=== PATIENT | male | born 2000 | race Caucasian/White ===

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

== ENCOUNTER → 2020-08-05 | Outpatient (CLI) | payer BC | LOC: M LABSMTC 12:52 | PROVIDERS: ATTEND Family Medicine | DX: Z20.828 Contact with and (suspected) exposure to other viral communicable diseases (principal) ==

== ENCOUNTER → 2021-03-09 | Outpatient (CLI) | payer BC | LOC: M RAD 14:05 | PROVIDERS: ATTEND Nurse Practitioner Family | DX: M25.551 Pain in right hip (principal); M25.552 Pain in left hip ==

== ENCOUNTER → 2021-04-06 | Outpatient (CLI) | payer BC ==
[2021-04-06 14:28] LABS: BASO # 0.1 10^3/uL (0.0-0.2); BASO % 1.9 % (0.0-1.0); EOS # 0.1 10^3/uL (0.0-0.5); EOS % 1.3 % (0.0-3.0); HEMATOCRIT 46.9 % (42.0-52.0); HEMOGLOBIN 15.9 g/dl (13.5-17.5); LYMPH # 1.2 10^3/uL (1.5-5.0); LYMPH % 32.1 % (24.0-44.0); MEAN CORPUSCULAR HEMOGLOBIN 30.3 pg (27.0-33.0); MEAN CORPUSCULAR HGB CONC 33.9 g/dl (32.0-36.5); MEAN CORPUSCULAR VOLUME 89.3 fl (80.0-96.0); MONO # 0.6 10^3/uL (0.0-0.8); NEUTROPHILS # 1.9 10^3/uL (1.5-8.5); NEUTROPHILS % 49.4 % (36.0-66.0); PLATELET COUNT, AUTOMATED 219 10^3/uL (150-450); RED BLOOD COUNT 5.25 10^6/uL (4.30-6.10); WHITE BLOOD COUNT 3.7 10^3/uL (4.0-10.0)
[2021-04-06 14:57] LABS: C REACTIVE PROTEIN QUANTITATIV < 0.30 MG/DL (0.00-0.30); RHEUMATOID FACTOR QUANT < 10.0 IU/ML (<15.0)
[2021-04-06 15:04] LABS: ERYTHROCYTE SEDIMENTATION RATE 2 mm/hr (0-15)
[2021-04-07 16:08] LABS: ANTINUCLEAR ANTIBODIES DIRECT Negative (Negative); Lyme Disease IgG/IgM Antibodie <0.91 ISR (0.00-0.90); Lyme Disease IgM Ab Quantitati <0.80 index (0.00-0.79)
== END ==
LOC: M PLALAB 10:55
PROVIDERS: ATTEND Orthopaedic Surgery
DX: M16.11 Unilateral primary osteoarthritis, right hip (principal)

== ENCOUNTER → 2021-04-14 | Outpatient (CLI) | payer BC ==
[2021-04-14 15:21] LABS: HEMATOCRIT 45.6 % (42.0-52.0); HEMOGLOBIN 15.3 g/dl (13.5-17.5); MEAN CORPUSCULAR HEMOGLOBIN 29.9 pg (27.0-33.0); MEAN CORPUSCULAR HGB CONC 33.6 g/dl (32.0-36.5); MEAN CORPUSCULAR VOLUME 89.2 fl (80.0-96.0); PLATELET COUNT, AUTOMATED 227 10^3/uL (150-450); RED BLOOD COUNT 5.11 10^6/uL (4.30-6.10); WHITE BLOOD COUNT 4.2 10^3/uL (4.0-10.0)
[2021-04-14 16:01] LABS: ALBUMIN 4.3 GM/DL (3.2-5.2); ALT/SGPT 17 U/L (12-78); BILIRUBIN,TOTAL 0.9 MG/DL (0.2-1.0); BLOOD UREA NITROGEN 10 MG/DL (7-18); CALCIUM LEVEL 8.7 MG/DL (8.5-10.1); CARBON DIOXIDE LEVEL 29 MEQ/L (21-32); CHLORIDE LEVEL 109 MEQ/L (98-107); CREATININE FOR GFR 0.81 MG/DL (0.70-1.30); GLUCOSE, FASTING 89 MG/DL (70-100); POTASSIUM SERUM 4.2 MEQ/L (3.5-5.1); SODIUM LEVEL 142 MEQ/L (136-145); TOTAL PROTEIN 7.1 GM/DL (6.4-8.2)
== END ==
LOC: M PLALAB 12:05
PROVIDERS: ATTEND Nurse Practitioner Adult Health
DX: Z76.89 Persons encountering health services in other specified circumstances (principal)

== ENCOUNTER → 2021-05-08 | Outpatient (CLI) | payer BC ==
[~2021-05-08] MED LIST changes: +ISOVUE-300 61% 50ML VIAL As Ordered ONE; -ISOVUE-370 76% 100ML VIAL (Q9967) As Ordered ONE; +PROHANCE 279.3MG/ML 5ML VIAL As Ordered ONE
--- NOTE | 2021-05-08 09:38 | REP ---
INDICATION: PAIN RT HIP. COMPARISON: None TECHNIQUE: The procedure was performed by ANUJA Che, under the direct supervision of Dr. Watson. The benefits and risks of the procedure were explained to the patient, and an informed consent was obtained. Directly prior to the start of the procedure, a formal time-out was completed in the procedure room. The right femoral neck joint space was localized using fluoroscopic guidance. The skin was prepped and draped in a sterile fashion. Approximately 5 mL of 1% Lidocaine 10 mg/ml was used as a local anesthetic. Using fluoroscopic guidance, a #22 gauge spinal needle was inserted and advanced into the right femoral neck joint space. Approximately 1 mL of Isovue 300 was injected to verify placement. Twelve mL of a solution containing 20 mL of sterile saline and 0.15 mL of ProHance was injected into the joint space. The needle was removed and the patient was taken to MRI for post procedural imaging. FINDINGS: The patient tolerated the procedure well and there were no immediate complications. IMPRESSION: Fluoroscopically guided right hip MRI arthrogram injection. 0.1 minutes of fluoroscopy time was utilized for this procedure. Some fluoroscopic images are performed with last image hold technology. These images require no additional radiation. <Electronically signed by Cammie Mac > 05/08/21 0828 <Electronically signed by Behzad Watson > 05/08/21 0967
--- NOTE | 2021-05-08 09:57 | REP ---
INDICATION: PAIN RT HIP. Rule out labral tear, AVN. COMPARISON: Comparison radiographs are from March 09, 2021. TECHNIQUE: Precontrast imaging includes coronal T1 and T2-weighted scans of both hips. Precontrast high-resolution smaller field of view axial, coronal and sagittal T2 fat sat images are acquired of the right hip. The injection procedure is performed and dictated separately. Postcontrast T1 fat sat images are acquired in all 3 planes. FINDINGS: Precontrast coronal T1 and T2 weighted scans show normal cortical and medullary bone signal intensity in the proximal femurs and in the visualized bony pelvic ring. There is no evidence to suggest avascular necrosis of either femoral head. No hip joint effusion is seen. No juxta-articular cyst or mass is observed. Seminal vesicles, prostate, and urinary bladder are unremarkable. No pelvic mass or adenopathy is seen. No abdominal wall defect is observed. Post injection images show good filling and enhancement of the right hip articulation. No loose body is seen. Ligamentum teres is intact. There is no evidence of acetabular labral tear. Head neck junction morphology is normal. The study is otherwise unremarkable. IMPRESSION: Negative MR arthrography right hip. <Electronically signed by Behzad Watson > 05/08/21 0928
== END ==
LOC: M RADPRO 06:50
PROVIDERS: ATTEND Orthopaedic Surgery
DX: M25.551 Pain in right hip (principal)
CPT/HCPCS: 27093; 73723; 77002; A9576; Q9967

== ENCOUNTER → 2021-05-15 | Outpatient (CLI) | payer BC ==
--- NOTE | 2021-05-15 09:31 | REP ---
INDICATION: PAIN LT HIP. COMPARISON: Comparison hip radiographs March 09 2021. TECHNIQUE: Precontrast imaging includes coronal T1 and T2-weighted scans of both hips. Precontrast high-resolution smaller field of view axial, coronal and sagittal T2 fat sat images are acquired of the left hip. The injection procedure is performed and dictated separately. Postcontrast T1 fat sat images are acquired in all 3 planes. FINDINGS: Pre contrast coronal T1 and T2 weighted scans of both hips show that cortical and medullary bone signal intensity is normal. There is no evidence of avascular necrosis. Urinary bladder, prostate, and seminal vesicles are unremarkable. No pelvic mass or adenopathy is seen. No abdominal wall defect is observed. There is no evidence of joint effusion in either hip. Head neck junction morphology is normal. Post injection imaging shows good filling and enhancement of the left hip articulation. Ligamentum teres has a normal appearance. No loose body is seen. There is no evidence of left-sided acetabular labral cartilage tear. Hamstring and other tendon insertion sites are unremarkable. IMPRESSION: Negative MRI arthrography left hip. <Electronically signed by Behzad Watson > 05/15/21 0923
--- NOTE | 2021-05-15 16:16 | REP ---
INDICATION: PAIN LT HIP. COMPARISON: None. TECHNIQUE: The procedure was performed under the direction supervision of Dr. Watson. The benefits and risks including but not limited to pain, infection, bleeding and anaphylaxis were explained to the patient and informed consent was obtained. The left femoral neck was localized using fluoroscopic guidance. Skin was prepped and draped in a sterile fashion. 1% lidocaine was used as a local anesthetic. Using fluoroscopic guidance, and last image hold technology, a 22 gauge spinal needle was inserted and advanced to the femoral neck. 0.5 ml of Isovue-300 was injected to verify placement. 11 ml of a solution containing 20 ml of sterile saline and 0.15 ml of ProHance was injected into the joint. The needle was removed and the patient was taken to MRI for postprocedural imaging. The patient tolerated the procedure well and there were no immediate complications. Less than 6 seconds of fluoro time was utilized for this procedure. FINDINGS: None IMPRESSION: Fluoro guidance for left hip MRI arthrogram injection. <Electronically signed by Amaury Burton > 05/15/21 [id number] <Electronically signed by Behzad Watson > 05/15/21 [id number]
== END ==
LOC: M RADPRO 06:31
PROVIDERS: ATTEND Orthopaedic Surgery
DX: M25.552 Pain in left hip (principal)
CPT/HCPCS: 27093; 73723; 77002; A9576; Q9967

== ENCOUNTER → 2022-07-26 | Outpatient (CLI) | payer BC | LOC: M RAD 15:12 | PROVIDERS: ATTEND Orthopaedic Surgery | DX: M54.16 Radiculopathy, lumbar region (principal) ==

== ENCOUNTER 2022-08-05 08:45 | Outpatient (RCR) | payer BC | END 2022-08-07 | LOC: M PT 08:45 | PROVIDERS: ATTEND Orthopaedic Surgery | DX: M70.61 Trochanteric bursitis, right hip (principal); M70.62 Trochanteric bursitis, left hip; M54.16 Radiculopathy, lumbar region ==

== ENCOUNTER 2022-08-26 08:45 | Outpatient (RCR) | payer BC | END 2022-09-07 | LOC: M PT 08:45 | PROVIDERS: ATTEND Orthopaedic Surgery | DX: M70.61 Trochanteric bursitis, right hip (principal); M70.62 Trochanteric bursitis, left hip; M54.16 Radiculopathy, lumbar region ==